=== PATIENT | female | born 1955 | race African-American/Black ===

== ENCOUNTER 2020-08-23 11:03 | Inpatient (IN) | payer OTHER ==
[~2020-08-23] VITALS: Ht 165.1 cm; Wt 68.2 kg
[~2020-08-23 11:03] MED LIST: ATEN-42 PO; ATOR20TA65 PO; HYDR25TA PO; LISI40TA13 PO; METF-414 PO
[2020-08-23] MEDS ORDERED: MAGNESIUM/ALUMINUM HYDROXIDE/SIMETHICONE 30ML UDC PO ONE (12:00)
[2020-08-23] MEDS ORDERED: FAMOTIDINE 20MG/2ML VIAL IV ONE (12:00)
[2020-08-23 12:12] LABS: BASOPHILS % 1.5 % (0.0-2.0); EOSINOPHILS % 0.6 % (0.0-5.0); HEMATOCRIT. 34.5 % (36.0-48.0); HEMOGLOBIN. 11.9 g/dL (12.0-16.0); LYMPHOCYTES % 33.4 % (20.0-50.0); MEAN CORPUSCULAR HEMOGLOBIN 35.3 pg (28.0-32.0); MEAN CORPUSCULAR VOLUME 102.1 fL (81.0-99.0); MEAN PLATELET VOLUME 7.2 fl (7.4-10.4); MONOCYTES % 7.7 % (2.0-8.0); NEUTROPHILS % 56.8 % (40.0-76.0); PLATELET 339 x1000/uL (130-400); RED BLOOD CELL COUNT 3.38 mill/uL (4.2-5.4); RED CELL DISTRIBUTION WIDTH 15.9 % (11.6-14.6)
[2020-08-23 12:13] LABS: CHLORIDE 106 mEq/L (98-107)
[2020-08-23 12:17] LABS: ETHANOL BLOOD < 10 mg/dL
[2020-08-23] MEDS ORDERED: SODIUM CHLORIDE 0.9% 1,000 ML IV SCH (12:30)
[2020-08-23 12:36] LABS: *AMPHETAMINES SCREEN URINE NEGATIVE (NEGATIVE); *BARBITURATES SCREEN URINE NEGATIVE (NEGATIVE); *BENZODIAZEPINES SCREEN URINE NEGATIVE (NEGATIVE); *COCAINE SCREEN URINE NEGATIVE (NEGATIVE)
[2020-08-23 12:37] LABS: CANNABINOID URINE SCREEN PRESUMTIVE POSITIVE (NEGATIVE); METHADONE URINE SCREEN NEGATIVE (NEGATIVE); OPIATES URINE SCREEN NEGATIVE (NEGATIVE); PHENCYCLIDINE URINE SCREEN NEGATIVE (NEGATIVE)
[2020-08-23 18:00] VITALS: BP 167/70
[2020-08-23] MEDS ORDERED: KETOROLAC 15MG/ML VIAL IV PRN (18:00)
[2020-08-23] MEDS ORDERED: ONDANSETRON HCL 4MG/2ML INJ IV PRN (18:00)
[2020-08-23] MEDS ORDERED: ACETAMINOPHEN 325MG TABLET PO PRN (18:00)
[2020-08-23] MEDS: LISINOPRIL 40MG TABLET PO SCH (18:26)
[2020-08-23] MEDS ORDERED: METO-411 PO (18:36)
[2020-08-23 20:00] VITALS: BP 146/71
[2020-08-23 23:23] VITALS: BP 146/71
[2020-08-24] VITALS (9 sets, daily range): BP systolic 119–151; BP diastolic 55–103
[2020-08-24] MEDS: ASPIRIN 81MG TABLET PO SCH ×2 (09:23→09:25)
[2020-08-24] MEDS: LISINOPRIL 40MG TABLET PO SCH ×2 (09:23→09:25)
[2020-08-24] MEDS: THIAMINE HCL 100MG TABLET PO SCH ×2 (09:24→09:25)
[2020-08-24] MEDS ORDERED: BUPROPION HCL 150MG TABLET XL 24HR PO SCH (10:45)
[2020-08-24] MEDS: METOPROLOL TARTRATE 50MG TABLET PO SCH ×2 (12:09→20:29)
[2020-08-24] MEDS ORDERED: METOPROLOL TARTRATE 5MG/5ML VIAL IV SCH (12:15)
[2020-08-24] MEDS ORDERED: METOPROLOL TARTRATE 5MG/5ML VIAL IV PRN (12:35)
[2020-08-24] MEDS ORDERED: NITROGLYCERIN SPRAY/4.9GM CAN TL SCH (12:45)
[2020-08-24] MEDS ORDERED: IOHEXOL-350 100 ML BOTTLE ONE (13:05)
[2020-08-24] MEDS ORDERED: ENOXAPARIN 60MG/0.6ML SYR SUBCUT NR (16:00)
[2020-08-24] MEDS ORDERED: ZOLPIDEM TARTRATE 5MG TABLET PO NR (21:00)
[2020-08-25 04:00] VITALS: BP 134/74
[2020-08-25] MEDS ORDERED: SODIUM CHLORIDE 0.45% 1,000 ML IV ONE (07:00)
[2020-08-25 07:14] LABS: BASOPHILS % 1.2 % (0.0-2.0); CHLORIDE 106 mEq/L (98-107); EOSINOPHILS % 3.9 % (0.0-5.0); HEMATOCRIT. 32.2 % (36.0-48.0); HEMOGLOBIN. 10.7 g/dL (12.0-16.0); LYMPHOCYTES % 43.4 % (20.0-50.0); MEAN CORPUSCULAR HEMOGLOBIN 34.9 pg (28.0-32.0); MEAN CORPUSCULAR VOLUME 104.6 fL (81.0-99.0); MEAN PLATELET VOLUME 7.4 fl (7.4-10.4); MONOCYTES % 9.9 % (2.0-8.0); NEUTROPHILS % 41.6 % (40.0-76.0); PLATELET 288 x1000/uL (130-400); RED BLOOD CELL COUNT 3.07 mill/uL (4.2-5.4); RED CELL DISTRIBUTION WIDTH 16.6 % (11.6-14.6)
[2020-08-25 07:50] LABS: VITAMIN B12 SERUM 144 pg/mL (211-911)
[2020-08-25 08:00] VITALS: BP 173/99
[2020-08-25] MEDS ORDERED: HEPARIN SODIUM 1,000 UNIT/1ML VIAL IV ONE (08:18)
[2020-08-25] MEDS: THIAMINE HCL 100MG TABLET PO SCH (08:40)
[2020-08-25] MEDS: LISINOPRIL 40MG TABLET PO SCH (08:40)
[2020-08-25] MEDS: ASPIRIN 81MG TABLET PO SCH (08:40)
[2020-08-25] MEDS: METOPROLOL TARTRATE 50MG TABLET PO SCH (08:40)
[2020-08-25] MEDS ORDERED: MULTIVITAMINS,THER W-MINERALS TABLET PO SCH (09:00)
[2020-08-25] MEDS ORDERED: FOLIC ACID 1MG TABLET PO SCH (09:00)
[2020-08-25 12:01] VITALS: BP 158/74
[2020-08-25] MEDS ORDERED: CYANOCOBALAMIN 1000MCG/ML VIAL IM SCH (12:30)
[2020-08-25] MEDS ORDERED: ASPIRIN/SOD BICARB/CITRIC ACID 324MG TAB EFF ONE (12:49)
[2020-08-25] MEDS ORDERED: MIDAZOLAM HCL 5 MG/5 ML VIAL ONE (13:02)
[2020-08-25] MEDS ORDERED: FENTANYL CITRATE/PF 50MCG/ML 5ML VIAL ONE (13:02)
[2020-08-25] MEDS ORDERED: IODIXANOL 320MG/ML 100 ML BOTTLE IV ONE (13:03)
[2020-08-25] MEDS ORDERED: LIDOCAINE HCL 1% 20ML VIAL (Pyxis) INJ ONE (13:03)
[2020-08-25] MEDS ORDERED: LABETALOL HCL 5MG/ML VIAL 20ML IV ONE (13:54)
[2020-08-25] MEDS ORDERED: ONDANSETRON HCL 4MG/2ML INJ IV PRN (14:00)
[2020-08-25] MEDS ORDERED: SODIUM CHLORIDE 0.45% IV ONE (14:00)
[2020-08-25] MEDS ORDERED: ATROPINE SULFATE 1MG/10ML SYR IV PRN (14:00)
[2020-08-25] MEDS ORDERED: ACETAMINOPHEN 325MG TABLET PO PRN (14:00)
[2020-08-25] MEDS ORDERED: MORPHINE SULFATE 2 MG/ML CPJ (NOT FOR IM USE) IV PRN (14:00)
[2020-08-25] MEDS ORDERED: CYAN-50 PO (15:53)
[2020-08-25 17:15] VITALS: BP 133/79
[2020-08-26] MEDS ORDERED: CYANOCOBALAMIN 1000MCG TABLET PO SCH (07:15)
== END 2020-08-25 18:58 | disposition home or self-care (01) | DRG 191 ==
LOC: ER 11:03 → 5WST 14:41 → CANRESERV 16:07 → ENRESERV 16:07
PROVIDERS: ADMIT Internal Medicine; ATTEND Internal Medicine
PROC: 4A023N7 Measurement of Cardiac Sampling and Pressure, Left Heart, Percutaneous Approach (ICD-10-PCS; principal; 2020-08-25)
PROC: B2111ZZ Fluoroscopy of Multiple Coronary Arteries using Low Osmolar Contrast (ICD-10-PCS; 2020-08-25)
DX: I25.10 Atherosclerotic heart disease of native coronary artery without angina pectoris (principal); R65.10 Systemic inflammatory response syndrome (SIRS) of non-infectious origin without acute organ dysfunction; E11.9 Type 2 diabetes mellitus without complications; E53.8 Deficiency of other specified B group vitamins; E78.00 Pure hypercholesterolemia, unspecified; I10 Essential (primary) hypertension; E78.5 Hyperlipidemia, unspecified; Z20.822 Contact with and (suspected) exposure to COVID-19; F10.10 Alcohol abuse, uncomplicated; Z82.49 Family history of ischemic heart disease and other diseases of the circulatory system; Z83.3 Family history of diabetes mellitus; Z79.84 Long term (current) use of oral hypoglycemic drugs; Z79.899 Other long term (current) drug therapy; Z71.41 Alcohol abuse counseling and surveillance of alcoholic; R00.0 Tachycardia, unspecified; F12.90 Cannabis use, unspecified, uncomplicated
CPT/HCPCS: 36415; 71045; 75571; 80048; 80053; 80305; 80320; 82607; 83880; 84484; 85025; 87426; 93005; 93458; 99285; C1769; C1887; C1893; J1644; J1650; J1885; J2250; J3010; J3420; J3490; Q9967; G0480

== ENCOUNTER 2021-02-16 02:05 | Inpatient (IN) | payer OTHER ==
[~2021-02-16] VITALS: Ht 165.1 cm; Wt 67.4 kg
[2021-02-16] VITALS (8 sets, daily range): BP systolic 101–121; BP diastolic 38–72
[~2021-02-16 02:05] MED LIST changes: -ATEN-42 PO; -ATOR20TA65 PO; +CYAN-50 PO; +METO-411 PO
[2021-02-16 04:13] LABS: CHLORIDE 103 mEq/L (98-107); EOSINOPHILS % 3.3 % (0.0-5.0); HEMATOCRIT. 33.7 % (36.0-48.0); HEMOGLOBIN. 11.5 g/dL (12.0-16.0); LYMPHOCYTES % 35.1 % (20.0-50.0); MEAN CORPUSCULAR HEMOGLOBIN 36.4 pg (28.0-32.0); MEAN CORPUSCULAR VOLUME 106.8 fL (81.0-99.0); MEAN PLATELET VOLUME 7.7 fl (7.4-10.4); MONOCYTES % 9.4 % (2.0-8.0); NEUTROPHILS % 51.2 % (40.0-76.0); PLATELET 345 x1000/uL (130-400); RED BLOOD CELL COUNT 3.16 mill/uL (4.2-5.4); RED CELL DISTRIBUTION WIDTH 15.5 % (11.6-14.6)
[2021-02-16 04:17] LABS: ETHANOL BLOOD < 10 mg/dL
[2021-02-16] MEDS ORDERED: ASPIRIN 325MG EC TABLET PO SCH (05:00)
[2021-02-16] MEDS ORDERED: POTASSIUM CHLORIDE INJ 40 MEQ in DEXT 5% WATER 250 ML IV SCH (05:00)
[2021-02-16] MEDS ORDERED: POTASSIUM CHLORIDE 20MEQ TABLET SR PO SCH (05:00)
[2021-02-16] MEDS ORDERED: POTASSIUM CHLORIDE 20MEQ/PACKET PO SCH (12:30)
[2021-02-16] MEDS: LISINOPRIL 40MG TABLET PO SCH (13:00)
[2021-02-16] MEDS ORDERED: POTASSIUM CHLORIDE 20MEQ TABLET SR PO ONE (13:00)
[2021-02-16] MEDS ORDERED: DEXTROSE 50% WATER 50ML SYRINGE IV PRN ×2 (13:00→14:30)
[2021-02-16] MEDS: METOPROLOL SUCCINATE 50MG ER TABLET PO SCH (14:00)
[2021-02-16] MEDS ORDERED: DOCUSATE SODIUM 100MG CAPSULE PO PRN (14:30)
[2021-02-16] MEDS ORDERED: ACETAMINOPHEN 325MG TABLET PO PRN (14:30)
[2021-02-16] MEDS ORDERED: MAGNESIUM/ALUMINUM HYDROXIDE/SIMETHICONE 30ML UDC PO PRN (14:30)
[2021-02-16] MEDS ORDERED: CLONIDINE 0.1MG TABLET PO PRN (14:30)
[2021-02-16] MEDS ORDERED: ENOXAPARIN 40MG/0.4ML SYR SUBCUT SCH (14:30)
[2021-02-16] MEDS ORDERED: POTASSIUM CHLORIDE 20MEQ/PACKET PO NR (16:00)
[2021-02-16] MEDS: INSULIN LISPRO 100 UNITS/ML SUBCUT SCH ×2 (16:47→20:45)
[2021-02-16] MEDS: BLOOD SUGAR DIAGNOSTIC STRIP TEST SCH ×2 (16:47→20:45)
[2021-02-16 16:56] LABS: *AMPHETAMINES SCREEN URINE NEGATIVE (NEGATIVE); *BARBITURATES SCREEN URINE NEGATIVE (NEGATIVE); *BENZODIAZEPINES SCREEN URINE NEGATIVE (NEGATIVE); *COCAINE SCREEN URINE NEGATIVE (NEGATIVE); METHADONE URINE SCREEN NEGATIVE (NEGATIVE)
[2021-02-16 16:58] LABS: CANNABINOID URINE SCREEN NEGATIVE (NEGATIVE); OPIATES URINE SCREEN NEGATIVE (NEGATIVE); PHENCYCLIDINE URINE SCREEN NEGATIVE (NEGATIVE)
[2021-02-16] MEDS: METFORMIN HCL 500MG TABLET PO SCH (17:26)
[2021-02-16 18:15] LABS: VITAMIN B12 SERUM 976 pg/mL (211-911)
[2021-02-16] MEDS ORDERED: ATORVASTATIN CALCIUM 20MG TABLET PO SCH (21:00)
[2021-02-16] MEDS ORDERED: ZOLPIDEM TARTRATE 5MG TABLET PO PRN (21:00)
[2021-02-17] VITALS (7 sets, daily range): BP systolic 92–125; BP diastolic 40–80
[2021-02-17] MEDS: BLOOD SUGAR DIAGNOSTIC STRIP TEST SCH ×2 (06:25→12:15)
[2021-02-17] MEDS: INSULIN LISPRO 100 UNITS/ML SUBCUT SCH ×2 (06:25→12:16)
[2021-02-17 08:32] LABS: BASOPHILS % 0.8 % (0.0-2.0); EOSINOPHILS % 4.7 % (0.0-5.0); HEMATOCRIT. 32.9 % (36.0-48.0); HEMOGLOBIN. 11.2 g/dL (12.0-16.0); LYMPHOCYTES % 46.8 % (20.0-50.0); MEAN CORPUSCULAR VOLUME 108.3 fL (81.0-99.0); MEAN PLATELET VOLUME 7.6 fl (7.4-10.4); MONOCYTES % 10.5 % (2.0-8.0); NEUTROPHILS % 37.2 % (40.0-76.0); PLATELET 340 x1000/uL (130-400); RED BLOOD CELL COUNT 3.03 mill/uL (4.2-5.4); RED CELL DISTRIBUTION WIDTH 15.6 % (11.6-14.6)
[2021-02-17] MEDS: METFORMIN HCL 500MG TABLET PO SCH (08:53)
[2021-02-17] MEDS: LISINOPRIL 40MG TABLET PO SCH (08:54)
[2021-02-17] MEDS ORDERED: THIAMINE HCL 100MG TABLET PO SCH (09:00)
[2021-02-17] MEDS ORDERED: ASPIRIN 81MG EC TABLET PO SCH (09:00)
[2021-02-17] MEDS ORDERED: FOLIC ACID 1MG TABLET PO SCH (09:00)
[2021-02-17] MEDS ORDERED: MULTIVITAMINS,THER W-MINERALS TABLET PO SCH (09:00)
[2021-02-17 09:12] LABS: CHLORIDE 106 mEq/L (98-107)
[2021-02-17 09:22] LABS: LDL CHOLESTEROL 42 mg/dL (5-100)
[2021-02-17 09:25] LABS: HDL CHOLESTEROL 113 mg/dL (40-59)
[2021-02-17] MEDS: METOPROLOL SUCCINATE 50MG ER TABLET PO SCH (09:56)
[2021-02-17] MEDS ORDERED: ASPI-1406 PO (10:13)
[2021-02-17] MEDS ORDERED: TRAM50TA3 PO (10:13)
[2021-02-17] MEDS ORDERED: ATOR20TA PO (10:13)
== END 2021-02-17 13:47 | disposition home or self-care (01) | DRG 203 ==
LOC: ER 02:05 → 3WST 05:26 → ENRESERV 07:33
PROVIDERS: ADMIT Internal Medicine; ATTEND Internal Medicine
DX: M94.0 Chondrocostal junction syndrome [Tietze] (principal); E44.0 Moderate protein-calorie malnutrition; D64.9 Anemia, unspecified; E11.9 Type 2 diabetes mellitus without complications; E78.00 Pure hypercholesterolemia, unspecified; E53.8 Deficiency of other specified B group vitamins; I25.10 Atherosclerotic heart disease of native coronary artery without angina pectoris; E78.5 Hyperlipidemia, unspecified; E87.6 Hypokalemia; F10.10 Alcohol abuse, uncomplicated; I10 Essential (primary) hypertension; Z79.82 Long term (current) use of aspirin; Z79.899 Other long term (current) drug therapy; Z79.84 Long term (current) use of oral hypoglycemic drugs; Z82.49 Family history of ischemic heart disease and other diseases of the circulatory system; Z83.3 Family history of diabetes mellitus; Z71.41 Alcohol abuse counseling and surveillance of alcoholic
CPT/HCPCS: 36415; 71045; 80048; 80053; 80061; 80305; 80320; 82607; 82962; 83036; 83735; 83880; 84484; 85025; 86850; 86900; 87493; 93005; 93970; 99285; J1650; J3480; J7040; J7060; G0480

== ENCOUNTER 2021-12-06 15:21 | Inpatient (IN) | payer OTHER ==
[~2021-12-06] VITALS: Ht 162.6 cm; Wt 65.3 kg
[~2021-12-06 15:21] MED LIST changes: +ASPI-1406 PO; +ATOR20TA PO; -CYAN-50 PO; +TRAM50TA3 PO
[2021-12-06 17:29] LABS: BASOPHILS % 0.8 % (0.0-2.0); EOSINOPHILS % 0.5 % (0.0-5.0); HEMATOCRIT. 38.6 % (36.0-48.0); HEMOGLOBIN. 12.9 g/dL (12.0-16.0); LYMPHOCYTES % 56.5 % (20.0-50.0); MEAN CORPUSCULAR HEMOGLOBIN 34.1 pg (28.0-32.0); MEAN CORPUSCULAR VOLUME 101.8 fL (81.0-99.0); MEAN PLATELET VOLUME 7.6 fl (7.4-10.4); MONOCYTES % 8.1 % (2.0-8.0); NEUTROPHILS % 34.1 % (40.0-76.0); PLATELET 286 x1000/uL (130-400); RED BLOOD CELL COUNT 3.79 mill/uL (4.2-5.4)
[2021-12-06 17:41] LABS: CHLORIDE 99 mEq/L (98-107)
[2021-12-06] MEDS ORDERED: SODIUM CHLORIDE 0.9% 1,000 ML IV ONE (19:45)
[2021-12-06 20:49] LABS: CLARITY URINE CLOUDY (CLEAR); COLOR URINE DARK YELLOW (YELLOW); KETONES URINE NEGATIVE (NEGATIVE); LEUKOCYTE ESTERASE URINE NEGATIVE (NEGATIVE); NITRITE URINE NEGATIVE (NEGATIVE); OCCULT BLOOD URINE NEGATIVE (NEGATIVE); PROTEIN URINE TRACE (NEGATIVE); SPECIFIC GRAVITY URINE 1.023 (1.005-1.030)
[2021-12-06] MEDS ORDERED: TRAMADOL HCL/ACETAMINOPHEN 37.5/325MG TABLET PO ONE (21:15)
[2021-12-07] VITALS (15 sets, daily range): BP systolic 125–194; BP diastolic 59–128
[2021-12-07] MEDS ORDERED: IOHEXOL-350 100 ML BOTTLE ONE (01:21)
[2021-12-07] MEDS ORDERED: NALOXONE HCL 0.4MG/ML VIAL IV PRN (04:15)
[2021-12-07] MEDS: HYDROCODONE/ACETAMINOPHEN 10/325MG TABLET PO PRN ×2 (07:15→16:13)
[2021-12-07] MEDS ORDERED: ONDANSETRON HCL 4MG/2ML INJ IV PRN (09:30)
[2021-12-07] MEDS ORDERED: ACETAMINOPHEN 325MG TABLET PO PRN (09:30)
[2021-12-07] MEDS ORDERED: METOPROLOL TARTRATE 50MG TABLET PO SCH (10:00)
[2021-12-07] MEDS: LOSARTAN POTASSIUM 100 MG TABLET PO SCH (10:00)
[2021-12-07] MEDS ORDERED: DILTIAZEM HCL 5MG/ML 5ML VIAL IV SCH (11:00)
[2021-12-07] MEDS ORDERED: DILTIAZEM 125MG/125ML PMX 125 ML IV SCH (12:00)
[2021-12-07] MEDS ORDERED: METRONIDAZOLE 500 MG PREMIX 250 MG in BAG 0 EACH IV SCH (13:15)
[2021-12-07] MEDS: DILTIAZEM HCL 60MG TABLET PO SCH (16:13)
[2021-12-07] MEDS: LEVOFLOXACIN 250MG PREMIX 50 ML IV SCH (16:34)
[2021-12-07] MEDS: METRONIDAZOLE 500 MG PREMIX 100 ML IV SCH (16:34)
[2021-12-07 17:46] LABS: *AMPHETAMINES SCREEN URINE NEGATIVE (NEGATIVE); *BARBITURATES SCREEN URINE NEGATIVE (NEGATIVE); *BENZODIAZEPINES SCREEN URINE NEGATIVE (NEGATIVE); *COCAINE SCREEN URINE NEGATIVE (NEGATIVE); CANNABINOID URINE SCREEN PRESUMTIVE POSITIVE (NEGATIVE); METHADONE URINE SCREEN NEGATIVE (NEGATIVE); OPIATES URINE SCREEN PRESUMTIVE POSITIVE (NEGATIVE); PHENCYCLIDINE URINE SCREEN NEGATIVE (NEGATIVE)
[2021-12-07] MEDS ORDERED: DILTIAZEM HCL 125 MG in DEXT 5% WATER 100 ML IV SCH (18:00)
[2021-12-07] MEDS: METOPROLOL TARTRATE 50MG TABLET PO SCH (20:50)
[2021-12-08] VITALS (25 sets, daily range): BP systolic 104–144; BP diastolic 50–90
[2021-12-08] MEDS: METRONIDAZOLE 500 MG PREMIX 100 ML IV SCH ×2 (00:03→09:30)
[2021-12-08] MEDS: DILTIAZEM HCL 60MG TABLET PO SCH ×4 (00:04→20:31)
[2021-12-08] MEDS: METOPROLOL TARTRATE 50MG TABLET PO SCH ×2 (08:22→20:32)
[2021-12-08] MEDS: LOSARTAN POTASSIUM 100 MG TABLET PO SCH (09:30)
[2021-12-08 09:38] LABS: BASOPHILS % 0.7 % (0.0-2.0); EOSINOPHILS % 1.8 % (0.0-5.0); HEMATOCRIT. 32.3 % (36.0-48.0); HEMOGLOBIN. 10.8 g/dL (12.0-16.0); LYMPHOCYTES % 20.6 % (20.0-50.0); MEAN CORPUSCULAR HEMOGLOBIN 34.3 pg (28.0-32.0); MEAN CORPUSCULAR VOLUME 102.6 fL (81.0-99.0); MEAN PLATELET VOLUME 8.1 fl (7.4-10.4); MONOCYTES % 8.6 % (2.0-8.0); NEUTROPHILS % 68.3 % (40.0-76.0); PLATELET 220 x1000/uL (130-400); RED BLOOD CELL COUNT 3.15 mill/uL (4.2-5.4); RED CELL DISTRIBUTION WIDTH 16.5 % (11.6-14.6)
[2021-12-08] MEDS: BUDESONIDE 0.5MG/2ML NEB HHN SCH ×2 (09:56→20:38)
[2021-12-08] MEDS ORDERED: DILTIAZEM 125MG/125ML PMX 125 ML IV SCH (10:00)
[2021-12-08] MEDS: HYDROCODONE/ACETAMINOPHEN 10/325MG TABLET PO PRN (10:22)
[2021-12-08 10:27] LABS: CHLORIDE 98 mEq/L (98-107)
[2021-12-08] MEDS: LEVOFLOXACIN 250MG PREMIX 50 ML IV SCH (11:16)
[2021-12-08] MEDS ORDERED: MAGNESIUM OXIDE 400MG TABLET PO SCH (12:00)
[2021-12-09 01:42] VITALS: BP 105/58
[2021-12-09] MEDS: DILTIAZEM HCL 60MG TABLET PO SCH (01:58)
== END 2021-12-09 05:30 | disposition left against medical advice (07) | DRG 201 ==
LOC: ER 15:21 → EDBEDREQ 22:24 → MICUSO 23:11 → EDBEDREQTM 23:15 → EDBEDREQ 23:15 → 6WST 12-07 09:12 → 5EST 12-07 11:31
PROVIDERS: ADMIT Internal Medicine; ATTEND Internal Medicine
DX: I47.1 Supraventricular tachycardia (principal); J96.00 Acute respiratory failure, unspecified whether with hypoxia or hypercapnia; E44.1 Mild protein-calorie malnutrition; E87.2 Acidosis; I48.92 Unspecified atrial flutter; D53.9 Nutritional anemia, unspecified; E11.9 Type 2 diabetes mellitus without complications; J68.0 Bronchitis and pneumonitis due to chemicals, gases, fumes and vapors; E78.00 Pure hypercholesterolemia, unspecified; K76.0 Fatty (change of) liver, not elsewhere classified; I10 Essential (primary) hypertension; I25.10 Atherosclerotic heart disease of native coronary artery without angina pectoris; K82.8 Other specified diseases of gallbladder; Z20.822 Contact with and (suspected) exposure to COVID-19; Z53.29 Procedure and treatment not carried out because of patient's decision for other reasons; R74.01 Elevation of levels of liver transaminase levels; I48.91 Unspecified atrial fibrillation; E83.42 Hypomagnesemia; F41.9 Anxiety disorder, unspecified; F10.10 Alcohol abuse, uncomplicated; F12.90 Cannabis use, unspecified, uncomplicated; Z83.3 Family history of diabetes mellitus; Z79.899 Other long term (current) drug therapy; I25.2 Old myocardial infarction; Z68.24 Body mass index [BMI] 24.0-24.9, adult; Z79.84 Long term (current) use of oral hypoglycemic drugs; Z82.49 Family history of ischemic heart disease and other diseases of the circulatory system; Z82.3 Family history of stroke
CPT/HCPCS: 36415; 71275; 76700; 80048; 80053; 80305; 81003; 83036; 83605; 83735; 83880; 84145; 84443; 85025; 85379; 87426; 93005; 93306; 93970; 94640; 94664; 99285; J1956; J3490; J7060; J7626; Q9967

== ENCOUNTER 2022-05-25 23:11 | Inpatient (IN) | payer OTHER ==
[~2022-05-25] VITALS: Ht 162.6 cm; Wt 64.9 kg
[~2022-05-25 23:11] MED LIST changes: -ATOR20TA PO; +DILT120C88 PO; +L25 MT; -LISI40TA13 PO; -METO-411 PO
[2022-05-25] MEDS ORDERED: NITROGLYCERIN 0.4MG TABLET SL SL PRN (23:45)
[2022-05-25] MEDS ORDERED: ASPIRIN 81MG TABLET PO ONE (23:45)
[2022-05-26 00:34] LABS: BASOPHILS % 0.2 % (0.0-2.0); EOSINOPHILS % 0.1 % (0.0-5.0); HEMATOCRIT. 34.9 % (36.0-48.0); HEMOGLOBIN. 11.6 g/dL (12.0-16.0); LYMPHOCYTES % 14.3 % (20.0-50.0); MEAN CORPUSCULAR HEMOGLOBIN 36.6 pg (28.0-32.0); MEAN CORPUSCULAR VOLUME 109.9 fL (81.0-99.0); MEAN PLATELET VOLUME 8.5 fl (7.4-10.4); MONOCYTES % 5.5 % (2.0-8.0); NEUTROPHILS % 79.9 % (40.0-76.0); PLATELET 327 x1000/uL (130-400); RED BLOOD CELL COUNT 3.18 mill/uL (4.2-5.4); RED CELL DISTRIBUTION WIDTH 20.1 % (11.6-14.6)
[2022-05-26 00:40] LABS: CHLORIDE 92 mEq/L (98-107)
[2022-05-26] MEDS ORDERED: SODIUM CHLORIDE 0.9% 1,000 ML IV ONE (01:00)
[2022-05-26] MEDS ORDERED: ONDANSETRON HCL 4MG/2ML INJ IV ONE (01:00)
[2022-05-26] MEDS ORDERED: DILTIAZEM HCL 5MG/ML 5ML VIAL IV ONE (02:00)
[2022-05-26] MEDS ORDERED: MORPHINE SULFATE 4 MG/ML CPJ (NOT FOR IM USE) IV ONE (02:00)
[2022-05-26] MEDS ORDERED: HYDRALAZINE 20MG/ML VIAL IV PRN (06:15)
[2022-05-26] MEDS ORDERED: LORAZEPAM 2MG/ML CPJ IV PRN ×2 (06:15→17:45)
[2022-05-26 08:31] LABS: CLARITY URINE CLEAR (CLEAR); COLOR URINE YELLOW (YELLOW); KETONES URINE NEGATIVE (NEGATIVE); LEUKOCYTE ESTERASE URINE NEGATIVE (NEGATIVE); NITRITE URINE NEGATIVE (NEGATIVE); OCCULT BLOOD URINE NEGATIVE (NEGATIVE); PROTEIN URINE TRACE (NEGATIVE); SPECIFIC GRAVITY URINE 1.017 (1.005-1.030)
[2022-05-26] MEDS: DILTIAZEM HCL 60MG TABLET PO SCH (10:15)
[2022-05-26] MEDS: SODIUM BICARBONATE 100 MEQ in DEXTROSE 5% WATER 1,000 ML IV SCH (10:15)
[2022-05-26] MEDS: ENOXAPARIN 40MG/0.4ML SYR SUBCUT SCH (10:16)
[2022-05-26 10:23] LABS: *AMPHETAMINES SCREEN URINE NEGATIVE (NEGATIVE); *BARBITURATES SCREEN URINE NEGATIVE (NEGATIVE); *BENZODIAZEPINES SCREEN URINE NEGATIVE (NEGATIVE); *COCAINE SCREEN URINE NEGATIVE (NEGATIVE); CANNABINOID URINE SCREEN PRESUMTIVE POSITIVE (NEGATIVE); METHADONE URINE SCREEN NEGATIVE (NEGATIVE); OPIATES URINE SCREEN PRESUMTIVE POSITIVE (NEGATIVE); PHENCYCLIDINE URINE SCREEN NEGATIVE (NEGATIVE)
[2022-05-26] MEDS ORDERED: ACETAMINOPHEN 325MG TABLET PO PRN ×2 (17:45)
[2022-05-26] MEDS ORDERED: ONDANSETRON HCL 4MG/2ML INJ IV PRN (17:45)
[2022-05-26] MEDS ORDERED: ZOLPIDEM TARTRATE 5MG TABLET PO PRN (17:45)
[2022-05-26] MEDS ORDERED: CLONIDINE 0.1MG TABLET PO PRN (17:45)
[2022-05-26 20:00] VITALS: BP 140/69
[2022-05-26 20:54] VITALS: BP 141/71
[2022-05-26] MEDS ORDERED: DEXTROSE 50% WATER 50ML SYRINGE IV PRN (21:15)
[2022-05-26] MEDS: MVI, ADULT NO.1 10 ML, FOLIC ACID 1 MG, THIAMINE HCL 100 MG in SODIUM CHLORIDE 0.9% 1,0... IV SCH ×4 (22:25)
[2022-05-27] VITALS (7 sets, daily range): BP systolic 134–146; BP diastolic 67–78
[2022-05-27] MEDS: DILTIAZEM HCL 60MG TABLET PO SCH ×4 (00:33→18:00)
[2022-05-27] MEDS: SODIUM BICARBONATE 100 MEQ in DEXTROSE 5% WATER 1,000 ML IV SCH (04:17)
[2022-05-27 07:08] LABS: BASOPHILS % 0.4 % (0.0-2.0); EOSINOPHILS % 0.3 % (0.0-5.0); HEMOGLOBIN. 9.8 g/dL (12.0-16.0); LYMPHOCYTES % 25.9 % (20.0-50.0); MEAN CORPUSCULAR VOLUME 106.6 fL (81.0-99.0); MEAN PLATELET VOLUME 8.8 fl (7.4-10.4); MONOCYTES % 8.2 % (2.0-8.0); NEUTROPHILS % 65.2 % (40.0-76.0); PLATELET 227 x1000/uL (130-400); RED BLOOD CELL COUNT 2.72 mill/uL (4.2-5.4); RED CELL DISTRIBUTION WIDTH 19.7 % (11.6-14.6)
[2022-05-27] MEDS: BLOOD SUGAR DIAGNOSTIC STRIP TEST SCH ×4 (07:46→20:33)
[2022-05-27] MEDS ORDERED: POTASSIUM CHLORIDE 20MEQ TABLET SR PO SCH (08:30)
[2022-05-27] MEDS: ENOXAPARIN 40MG/0.4ML SYR SUBCUT SCH (08:38)
[2022-05-27] MEDS: ASPIRIN 81MG EC TABLET PO SCH (08:38)
[2022-05-27] MEDS: INSULIN LISPRO 100 UNITS/ML SUBCUT SCH ×4 (08:49→20:43)
[2022-05-27] MEDS ORDERED: DILTIAZEM HCL 120MG CAPSULE ER 24HR PO SCH (09:00)
[2022-05-27] MEDS ORDERED: METFORMIN HCL 500MG TABLET PO SCH (09:00)
[2022-05-27] MEDS ORDERED: HYDROCHLOROTHIAZIDE 25MG TABLET PO SCH (09:00)
[2022-05-27] MEDS ORDERED: MAGNESIUM GLUCONATE 500MG TABLET PO NR (10:30)
[2022-05-27] MEDS ORDERED: DILT120C88 PO (12:09)
[2022-05-27] MEDS ORDERED: L25 MT (12:09)
[2022-05-27] MEDS ORDERED: THIA100T88 MT (12:09)
[2022-05-27] MEDS ORDERED: MAGNESIUM/ALUMINUM HYDROXIDE/SIMETHICONE 30ML UDC PO PRN (18:45)
[2022-05-27] MEDS: MVI, ADULT NO.1 10 ML, FOLIC ACID 1 MG, THIAMINE HCL 100 MG in SODIUM CHLORIDE 0.9% 1,0... IV SCH ×4 (18:46)
[2022-05-27] MEDS: METOPROLOL TARTRATE 50MG TABLET PO SCH (20:41)
[2022-05-27] MEDS ORDERED: IOHEXOL-350 100 ML BOTTLE ONE (22:06)
[2022-05-28] VITALS: BP 146/77
[2022-05-28 04:00] VITALS: BP 148/80
[2022-05-28] MEDS: DILTIAZEM HCL 60MG TABLET PO SCH ×3 (04:59→13:49)
[2022-05-28 06:44] LABS: BASOPHILS % 0.4 % (0.0-2.0); HEMATOCRIT. 28.4 % (36.0-48.0); HEMOGLOBIN. 9.7 g/dL (12.0-16.0); LYMPHOCYTES % 34.6 % (20.0-50.0); MEAN CORPUSCULAR HEMOGLOBIN 36.3 pg (28.0-32.0); MEAN CORPUSCULAR VOLUME 106.7 fL (81.0-99.0); MEAN PLATELET VOLUME 8.4 fl (7.4-10.4); PLATELET 225 x1000/uL (130-400); RED BLOOD CELL COUNT 2.67 mill/uL (4.2-5.4); RED CELL DISTRIBUTION WIDTH 19.4 % (11.6-14.6)
[2022-05-28] MEDS: BLOOD SUGAR DIAGNOSTIC STRIP TEST SCH ×2 (07:40→12:55)
[2022-05-28 08:00] VITALS: BP 160/79
[2022-05-28] MEDS: INSULIN LISPRO 100 UNITS/ML SUBCUT SCH ×2 (08:10→12:58)
[2022-05-28 08:23] LABS: CHLORIDE 97 mEq/L (98-107)
[2022-05-28 08:34] LABS: PHOSPHORUS 1.2 mg/dL (2.5-4.9)
[2022-05-28] MEDS ORDERED: POTASSIUM CHLORIDE 20MEQ TABLET SR PO SCH (09:00)
[2022-05-28] MEDS ORDERED: MAGNESIUM GLUCONATE 500MG TABLET PO SCH (09:00)
[2022-05-28] MEDS: METOPROLOL TARTRATE 50MG TABLET PO SCH (10:18)
[2022-05-28] MEDS: ASPIRIN 81MG EC TABLET PO SCH (10:18)
[2022-05-28] MEDS: ENOXAPARIN 40MG/0.4ML SYR SUBCUT SCH (10:18)
[2022-05-28] MEDS ORDERED: POTASSIUM PHOS,M-BASIC-D-BASIC 20 MMOL in DEXT 5% WATER 243.3333 ML IV NR (11:00)
[2022-05-28 12:00] VITALS: BP 134/68
[2022-05-28 15:41] VITALS: BP 134/68
== END 2022-05-28 17:45 | disposition home or self-care (01) | DRG 201 ==
LOC: ER 23:11 → MICUSO 05-26 01:44 → 7WST 05-26 19:55
PROVIDERS: ADMIT Internal Medicine; ATTEND Internal Medicine
DX: I47.1 Supraventricular tachycardia (principal); N17.0 Acute kidney failure with tubular necrosis; I50.9 Heart failure, unspecified; I11.0 Hypertensive heart disease with heart failure; I24.9 Acute ischemic heart disease, unspecified; K29.20 Alcoholic gastritis without bleeding; E87.20 Acidosis, unspecified; M94.0 Chondrocostal junction syndrome [Tietze]; E11.9 Type 2 diabetes mellitus without complications; E87.5 Hyperkalemia; F10.239 Alcohol dependence with withdrawal, unspecified; Z20.822 Contact with and (suspected) exposure to COVID-19; R74.01 Elevation of levels of liver transaminase levels; I35.8 Other nonrheumatic aortic valve disorders; I25.10 Atherosclerotic heart disease of native coronary artery without angina pectoris; I25.2 Old myocardial infarction; Z82.49 Family history of ischemic heart disease and other diseases of the circulatory system; Z83.3 Family history of diabetes mellitus; Z87.01 Personal history of pneumonia (recurrent)
CPT/HCPCS: 36415; 71045; 71275; 76770; 80048; 80053; 80305; 80320; 81003; 82550; 82962; 83036; 83735; 83880; 84100; 84443; 84484; 85025; 85379; 93005; 93306; 93970; 99285; J0360; J1650; J1815; J2060; J2270; J2405; J3411; J3490; J7030; J7060; J7070; Q9967; G0480

== ENCOUNTER 2023-10-05 08:32 | Emergency (ER) | payer MEDICARE, OTHER ==
[~2023-10-05] VITALS: Ht 160 cm; Wt 65.0 kg
[~2023-10-05 08:32] MED LIST changes: +ATOR40TA70 PO; +CHLO25CA11 MT; +CLON0.1T PO; +DABI150C PO; +FOLI-43 PO; +FURO-152 PO; +GABA-290 PO; -HYDR25TA PO; -L25 MT; +LISI40TA13 PO; +MAGN400T26 PO; +METO100T16 PO; +NITR0.4T49 SL; +THIA100T88 MT; +TRAZ150T79 PO
[2023-10-05 08:34] VITALS: O2SAT 99
[2023-10-05 09:35] LABS: BASOPHILS % 0.7 % (0.0-2.0); CHLORIDE 101 mEq/L (98-107); EOSINOPHILS % 0.5 % (0.0-5.0); HEMATOCRIT. 39.9 % (36.0-48.0); HEMOGLOBIN. 13.4 g/dL (12.0-16.0); LYMPHOCYTES % 34.5 % (20.0-50.0); MEAN CORPUSCULAR HEMOGLOBIN 32.4 pg (28.0-32.0); MEAN CORPUSCULAR HGB CONC 33.6 g/dL (31.0-37.0); MEAN CORPUSCULAR VOLUME 96.4 fL (81.0-99.0); MEAN PLATELET VOLUME 7.4 fl (7.4-10.4); MONOCYTES % 6.7 % (2.0-8.0); NEUTROPHILS % 57.6 % (40.0-76.0); PLATELET 357 x1000/uL (130-400); POTASSIUM 3.8 mEq/L (3.5-5.1); RED BLOOD CELL COUNT 4.13 mill/uL (4.2-5.4); RED CELL DISTRIBUTION WIDTH 16.8 % (11.6-14.6); SODIUM 138 mEq/L (136-145); WHITE BLOOD COUNT 5.7 x1000/uL (4.5-11.0)
[2023-10-05 09:36] LABS: CALCIUM 9.2 mg/dL (8.7-10.4); CARBON DIOXIDE 28 mEq/L (21-32)
[2023-10-05 09:41] LABS: CREATININE 0.8 mg/dL (0.6-1.0); GLUCOSE 95 mg/dL (70-105); UREA NITROGEN BLOOD 15 mg/dL (9-23)
[2023-10-05 09:42] LABS: TROPONIN I HIGH SENSITIVITY 12 ng/L (3.0-34)
[2023-10-05] MEDS: METOPROLOL TARTRATE 5MG/5ML VIAL IV SCH (10:12)
[2023-10-05] MEDS: METOPROLOL TARTRATE 100MG TABLET PO ONE (11:05)
[2023-10-05 11:12] LABS: TROPONIN I HIGH SENSITIVITY 14 ng/L (3.0-34)
[2023-10-05 11:14] LABS: D-DIMER 0.52 mg/L FEU (<0.50); INR 1.1; PROTHROMBIN TIME 11.9 sec (9.6-11.0)
[2023-10-05 12:12] VITALS: BP 189/70; PULSE 90; RESP 12; TEMP 98.1
== END 2023-10-05 12:25 | disposition home or self-care (01) ==
LOC: ER 08:56
DX: R07.89 Other chest pain (principal); R00.0 Tachycardia, unspecified; R00.2 Palpitations; I11.0 Hypertensive heart disease with heart failure; I50.9 Heart failure, unspecified; E11.9 Type 2 diabetes mellitus without complications; Z79.899 Other long term (current) drug therapy
CPT/HCPCS: 99285; 96374; 71045; 80048; 83880; 85025; 85379; 85610; 84484; 36415; 93005; J3490

== ENCOUNTER 2023-11-14 22:29 | Emergency (ER) | payer OTHER ==
[~2023-11-14] VITALS: Ht 162.6 cm; Wt 69.0 kg
[2023-11-14 22:32] VITALS: O2SAT 97
[2023-11-14] MEDS ORDERED: NITROGLYCERIN 0.4MG TABLET SL SL PRN (23:00)
[2023-11-14 23:32] LABS: BASOPHILS % 0.4 % (0.0-2.0); DIFFERENTIAL COMMENT 0; EOSINOPHILS % 0.1 % (0.0-5.0); HEMATOCRIT. 37.5 % (36.0-48.0); HEMOGLOBIN. 12.5 g/dL (12.0-16.0); LYMPHOCYTES % 11.6 % (20.0-50.0); MEAN CORPUSCULAR HEMOGLOBIN 33.6 pg (28.0-32.0); MEAN CORPUSCULAR HGB CONC 33.4 g/dL (31.0-37.0); MEAN CORPUSCULAR VOLUME 100.7 fL (81.0-99.0); MEAN PLATELET VOLUME 7.6 fl (7.4-10.4); MONOCYTES % 5.6 % (2.0-8.0); NEUTROPHILS % 82.3 % (40.0-76.0); PLATELET 288 x1000/uL (130-400); RED BLOOD CELL COUNT 3.72 mill/uL (4.2-5.4); RED CELL DISTRIBUTION WIDTH 19.9 % (11.6-14.6); WHITE BLOOD COUNT 7.2 x1000/uL (4.5-11.0)
[2023-11-14 23:34] LABS: D-DIMER 1.03 mg/L FEU (<0.50); INR 1.1; PARTIAL THROMBOPLASTIN TIME 24.8 sec (23.4-31.0); PROTHROMBIN TIME 12.1 sec (9.6-11.0)
[2023-11-14 23:35] LABS: CHLORIDE 101 mEq/L (98-107); POTASSIUM 3.6 mEq/L (3.5-5.1); SODIUM 141 mEq/L (136-145)
[2023-11-14 23:36] LABS: CARBON DIOXIDE 25 mEq/L (21-32)
[2023-11-14 23:37] LABS: CALCIUM 9.1 mg/dL (8.7-10.4)
[2023-11-14 23:41] LABS: CREATININE 1.1 mg/dL (0.6-1.0); GLUCOSE 207 mg/dL (70-105); UREA NITROGEN BLOOD 15 mg/dL (9-23)
[2023-11-14 23:42] LABS: TROPONIN I HIGH SENSITIVITY 13 ng/L (3.0-34)
[2023-11-14 23:43] LABS: ALANINE AMINOTRANSFERASE 32 IU/L (10-49); ALBUMIN 4.3 g/dL (3.2-4.8); ASPARTATE AMINOTRANSFERASE 79 IU/L (<34)
[2023-11-14 23:44] LABS: BILIRUBIN TOTAL 1.1 mg/dL (0.1-1.0); PROTEIN TOTAL 6.7 g/dL (6.0-8.3)
[2023-11-14] MEDS: ASPIRIN 81MG TABLET PO ONE (23:45)
[2023-11-14] MEDS: SODIUM CHLORIDE 0.9% 1,000 ML IV ONE (23:47)
[2023-11-15] MEDS: ONDANSETRON HCL 4MG/2ML INJ IV ONE (00:26)
[2023-11-15 02:46] LABS: TROPONIN I HIGH SENSITIVITY 15 ng/L (3.0-34)
[2023-11-15] MEDS: IOHEXOL-350 100 ML BOTTLE ONE (06:43)
[2023-11-15 09:56] VITALS: BP 108/92; PULSE 116; RESP 16; TEMP 98.9
[2023-11-15] MEDS ORDERED: IOHEXOL-350 100 ML BOTTLE ONE (16:23)
== END 2023-11-15 10:05 ==
LOC: ER 22:29 → EDBEDREQ 23:18 → EDBEDREQTM 11-15 06:25 → ER 11-15 10:05
DX: R07.9 Chest pain, unspecified (principal); F10.20 Alcohol dependence, uncomplicated; I11.0 Hypertensive heart disease with heart failure; I50.9 Heart failure, unspecified; E11.9 Type 2 diabetes mellitus without complications; Z79.899 Other long term (current) drug therapy
CPT/HCPCS: 99285; 96361; 71045; 80053; 83880; 85025; 85379; 85610; 85730; 84484 ×2; 36415 ×2; 93005; 96374; 71275; J7030; Q9967; J2405

== ENCOUNTER 2024-01-26 07:25 | Emergency (ER) | payer OTHER ==
[~2024-01-26] VITALS: Ht 160 cm; Wt 68.0 kg
[2024-01-26 07:27] VITALS: TEMP 98.3; O2SAT 98
[2024-01-26 08:38] VITALS: BP 175/94; PULSE 94; RESP 16
[2024-01-26] MEDS: KETOROLAC 30MG/ML VIAL IV STA (08:38)
[2024-01-26] MEDS: METOCLOPRAMIDE HCL 10MG/2ML VIAL IV ONE (08:38)
[2024-01-26] MEDS: SODIUM CHLORIDE 0.9% 1,000 ML IV ONE (08:38)
[2024-01-26] MEDS ORDERED: IBUP-2028 MT (09:17)
== END 2024-01-26 09:56 | disposition home or self-care (01) ==
LOC: ER 07:25
DX: R51.9 Headache, unspecified (principal); M54.2 Cervicalgia; E11.9 Type 2 diabetes mellitus without complications; I11.0 Hypertensive heart disease with heart failure; I50.9 Heart failure, unspecified; F10.20 Alcohol dependence, uncomplicated; Z79.899 Other long term (current) drug therapy; Y90.9 Presence of alcohol in blood, level not specified
CPT/HCPCS: 99284; 96374; 96361; 96375; J1885; J2765; J7030

== ENCOUNTER 2025-01-18 01:50 | Emergency (ER) | payer OTHER ==
[~2025-01-18] VITALS: Ht 170.2 cm; Wt 69.0 kg
[~2025-01-18 01:50] MED LIST changes: +IBUP-2028 MT; -LISI40TA13 PO; +LISI40TA21 PO
[2025-01-18 01:53] VITALS: O2SAT 97
[2025-01-18] MEDS: ONDANSETRON 4MG ODT PO ONE (03:34)
[2025-01-18] MEDS: SODIUM CHLORIDE 0.9% 500 ML IV ONE (03:38)
[2025-01-18] MEDS: PANTOPRAZOLE SODIUM 40 MG/VIAL IV ONE (03:39)
[2025-01-18] MEDS: ONDANSETRON HCL 4MG/2ML INJ IV ONE (03:39)
[2025-01-18 04:04] LABS: BASOPHILS % 0.3 % (0.0-2.0); EOSINOPHILS % 0.0 % (0.0-5.0); HEMATOCRIT. 38.6 % (36.0-48.0); HEMOGLOBIN. 12.3 g/dL (12.0-16.0); LYMPHOCYTES % 7.3 % (20.0-50.0); MEAN PLATELET VOLUME 8.5 fl (7.4-10.4); MONOCYTES % 5.7 % (2.0-8.0); NEUTROPHILS % 86.7 % (40.0-76.0); PLATELET 270 x1000/uL (130-400); RED BLOOD CELL COUNT 3.50 mill/uL (4.2-5.4); RED CELL DISTRIBUTION WIDTH 18.3 % (11.6-14.6)
[2025-01-18 04:13] LABS: CREATININE 1.1 mg/dL (0.6-1.0); TROPONIN I HIGH SENSITIVITY 10 ng/L (3.0-34); UREA NITROGEN BLOOD 11 mg/dL (9-23)
[2025-01-18 04:14] LABS: ASPARTATE AMINOTRANSFERASE 178 IU/L (<34)
[2025-01-18 04:15] LABS: BILIRUBIN DIRECT 0.3 mg/dL (<=3.0); BILIRUBIN TOTAL 0.7 mg/dL (0.1-1.0); PHOSPHORUS 6.6 mg/dL (2.5-4.9); PROTEIN TOTAL 7.2 g/dL (6.0-8.3)
[2025-01-18 04:18] LABS: ADD RBC MORPHOLOGY YES
[2025-01-18] MEDS: PANTOPRAZOLE 80 MG in SODIUM CHLORIDE 0.9% 100 ML IV SCH (04:19)
[2025-01-18] MEDS: MORPHINE SULFATE 4 MG/ML INJ (FOR IV/IM USE) IV ONE (04:19)
[2025-01-18] MEDS ORDERED: MAGNESIUM 2 G PREMIX 50 ML IV SCH (05:00)
[2025-01-18] MEDS ORDERED: IOHEXOL-300 100 ML BOTTLE ONE (05:33)
[2025-01-18 06:22] LABS: CLARITY URINE CLEAR (CLEAR); COLOR URINE YELLOW (YELLOW); GLUCOSE URINE NEGATIVE (NEGATIVE); KETONES URINE 2+ (NEGATIVE); LEUKOCYTE ESTERASE URINE NEGATIVE (NEGATIVE); NITRITE URINE NEGATIVE (NEGATIVE); OCCULT BLOOD URINE NEGATIVE (NEGATIVE); PH URINE 5.0 (4.5-8.0); PROTEIN URINE NEGATIVE (NEGATIVE); SPECIFIC GRAVITY URINE 1.035 (1.005-1.030); UROBILINOGEN URINE 0.2 E.U./dL (0.2-1.0)
[2025-01-18] MEDS ORDERED: DEXTROSE 50% WATER 50ML SYRINGE IV SCH (06:30)
[2025-01-18 06:37] LABS: *AMPHETAMINES SCREEN URINE NEGATIVE (NEGATIVE)
[2025-01-18 06:38] LABS: *BARBITURATES SCREEN URINE NEGATIVE (NEGATIVE); *BENZODIAZEPINES SCREEN URINE NEGATIVE (NEGATIVE); *COCAINE SCREEN URINE NEGATIVE (NEGATIVE); CANNABINOID URINE SCREEN PRESUMPTIVE POSITIVE (NEGATIVE); ECSTASY MDMA SCREEN URINE NEGATIVE (NEGATIVE); METHADONE URINE SCREEN NEGATIVE (NEGATIVE); OPIATES URINE SCREEN PRESUMPTIVE POSITIVE (NEGATIVE); PHENCYCLIDINE URINE SCREEN NEGATIVE (NEGATIVE)
[2025-01-18] MEDS ORDERED: MORPHINE SULFATE 4 MG/ML INJ (FOR IV/IM USE) IV ONE (06:45)
[2025-01-18 07:42] LABS: PLATELET ESTIMATE NORMAL
[2025-01-18 07:50] LABS: INR 1.1
[2025-01-18 08:30] VITALS: BP 154/67; PULSE 100; RESP 16; TEMP 36.7; O2SAT 98
== END 2025-01-18 08:40 | disposition short-term general hospital (02) ==
LOC: ER 01:50 → CMPBEDREQ 16:58
DX: R10.13 Epigastric pain (principal); R07.89 Other chest pain; K92.0 Hematemesis; E83.39 Other disorders of phosphorus metabolism; E83.42 Hypomagnesemia; E86.0 Dehydration; E11.649 Type 2 diabetes mellitus with hypoglycemia without coma; E11.65 Type 2 diabetes mellitus with hyperglycemia; I11.0 Hypertensive heart disease with heart failure; I50.9 Heart failure, unspecified; Z79.01 Long term (current) use of anticoagulants; Z79.82 Long term (current) use of aspirin; Z79.84 Long term (current) use of oral hypoglycemic drugs; Z79.899 Other long term (current) drug therapy
CPT/HCPCS: 80076; 80305; 80048; 81003; 80320; 82962; 83880; 83690; 83735; 84100; 85025; 85610; 85730; 86850; 86900; 86901; 84484; 36415; 71045; 74177; 93005; 96361; 96365; 96375; 99285; Q9967; J2405; J2470; J2270; J7050; J7040; G0480